=== PATIENT | female | born 1985 | race Native Hawaiian/Other Pacific Islander ===

== ENCOUNTER 2017-11-14 12:11 | Outpatient (CLI) | payer OTHER ==
[2017-11-14 12:46] LABS: BASOPHILS # (AUTO) 0.1 10^3/uL (0.0-0.1); BASOPHILS % (AUTO) 0.8 %; EOSINOPHILS # (AUTO) 0.3 10^3/uL (0.0-0.7); EOSINOPHILS % (AUTO) 2.2 %; HGB - HEMOGLOBIN 12.8 g/dL (12.0-16.0); LYMPHOCYTES # (AUTO) 2.2 10^3/uL (1.5-3.5); LYMPHOCYTES % (AUTO) 17.6 %; MEAN CORPUSCULAR HEMOGLOBIN 30.8 pg (27.0-31.0); MEAN CORPUSCULAR HGB CONC 33.7 g/dL (32.0-36.0); MEAN CORPUSCULAR VOLUME 91.3 fL (81.0-99.0); MEAN PLATELET VOLUME 7.2 fL (7.9-10.8); MONOCYTES # (AUTO) 1.2 10^3/uL (0.0-1.0); MONOCYTES % (AUTO) 9.9 %; NEUTROPHILS # (AUTO) 8.6 10^3/uL (1.5-6.6); NEUTROPHILS % (AUTO) 69.5 %; PLT - PLATELET COUNT 329 10^3/uL (130-450); RED BLOOD COUNT 4.17 10^6/uL (4.20-5.40); RED CELL DISTRIBUTION WIDTH 13.8 % (12.0-15.0); WHITE BLOOD COUNT 12.4 x10^3/uL (4.8-10.8)
[2017-11-14 12:54] LABS: BILIRUBIN,URINE NEGATIVE (NEGATIVE); GLUCOSE, URINE (UA) NEGATIVE (NEGATIVE); KETONES,URINE (UA) NEGATIVE (NEGATIVE); LEUKOCYTE ESTERASE, URINE NEGATIVE (NEGATIVE); NITRITE,URINE NEGATIVE (NEGATIVE); OCCULT BLOOD,URINE NEGATIVE (NEGATIVE); PROTEIN,URINE NEGATIVE (NEGATIVE); UROBILINOGEN,URINE 0.2 (NORMAL) E.U./dL (NORMAL)
[2017-11-14 12:56] LABS: CLARITY,URINE CLEAR (CLEAR)
[2017-11-14 13:03] LABS: BACTERIA,URINE Few /HPF (None Seen); MUCUS,URINE Moderate Strands; RBC,URINE None Seen /HPF (0-5); SQUAMOUS EPITHELIAL CELL,UR MANY Squamous (<= Few)
[2017-11-15 13:36] LABS: HIV AG/AB 4TH GEN NON-REACTIVE (NON-REACTIVE)
[2017-11-15 13:37] LABS: HEPATITIS B SURFACE ANTIGEN NON-REACTIVE (NON-REACTIVE)
== END 2017-11-14 12:12 | disposition home or self-care (01) ==
LOC: LAB 12:11
PROVIDERS: ATTEND Obstetrics & Gynecology
DX: Z36.9 Encounter for antenatal screening, unspecified (principal)
CPT/HCPCS: 36415; 81001; 81599; 85025; 86592; 86762; 86850; 86900; 86901; 87340; 87389

== ENCOUNTER 2017-12-19 12:07 | Outpatient (CLI) | payer OTHER | END 2017-12-19 12:08 | disposition home or self-care (01) | LOC: LAB 12:07 | PROVIDERS: ATTEND Obstetrics & Gynecology | DX: Z13.79 Encounter for other screening for genetic and chromosomal anomalies (principal); Z36.0 Encounter for antenatal screening for chromosomal anomalies | CPT/HCPCS: 36415; 81599; 82105; 82677; 84702; 86336 ==

== ENCOUNTER 2018-01-03 15:31 | Outpatient (CLI) | payer OTHER | END 2018-01-03 15:32 | disposition home or self-care (01) | LOC: LAB.R 15:31 | PROVIDERS: ATTEND Obstetrics & Gynecology | DX: R80.9 Proteinuria, unspecified (principal) | CPT/HCPCS: 87086 ==

== ENCOUNTER 2018-01-23 12:18 | Outpatient (CLI) | payer OTHER ==
--- NOTE | 2018-01-25 15:07 | Ultrasound Report ---
DETAILED OB ULTRASOUND ANATOMIC SURVEY: 01/23/2018 COMPARISON: No studies for comparison. INDICATION: Anatomy screen. TECHNIQUE: Real-time scanning was performed with farm loan representative static images obtained. LAST MENSTRUAL PERIOD 09/16/2017 Clinical Age 18 weeks 3 days US Age 19 weeks 6 days EFW Hadlock 304 grams EFW% Hadlock -- Heart Rate 154 bpm EDC 06/23/2018 US EDC 06/13/2018 BPD [place] 20 weeks 0 days; Mean mm 46 HC [place] 19 weeks 5 days; Mean mm 172 AC [place] 19 weeks 2 days; Mean mm 139 FL [place] 20 weeks 0 days; Mean mm 32 Presentation ariable Placental Location anterior Cervical Length 5.2 cm Amniotic Fluid 16.02 cm; FINDINGS The following structures were identified and have a normal appearance: Choroid plexus, lateral ventricles, midline falx, cavum septum pellucidum, cisterna magna, cerebellum, nasal bone, coronal face, nose and lips, open hands, cardiac situs, 4-chamber heart, right and left ventricular outflow tracts, stomach in situs, heart, stomach, bladder, diaphragm, kidneys, bladder, cord insertion, spine, upper extremities and lower extremities, leg and foot relationships. The following maternal structures appear unremarkable: Uterus, cervix, bilateral adnexae. No free fluid. IMPRESSION 1. SINGLE VIABLE INTRAUTERINE . SIZE IS CONCORDANT WITH DATES. 2. NO ANOMALIES. TD: 01/23/2018 14:59 MTDD
== END 2018-01-23 12:19 | disposition home or self-care (01) ==
LOC: DI 12:18
PROVIDERS: ATTEND Obstetrics & Gynecology
DX: Z36.9 Encounter for antenatal screening, unspecified (principal)
CPT/HCPCS: 76811

== ENCOUNTER 2018-03-20 07:43 | Outpatient (CLI) | payer OTHER ==
[2018-03-20 09:45] LABS: HGB - HEMOGLOBIN 11.4 g/dL (12.0-16.0); MEAN CORPUSCULAR HEMOGLOBIN 30.7 pg (27.0-31.0); MEAN CORPUSCULAR HGB CONC 32.9 g/dL (32.0-36.0); MEAN CORPUSCULAR VOLUME 93.4 fL (81.0-99.0); MEAN PLATELET VOLUME 7.6 fL (7.9-10.8); RED BLOOD COUNT 3.7 10^6/uL (4.20-5.40); RED CELL DISTRIBUTION WIDTH 14.2 % (12.0-15.0); WHITE BLOOD COUNT 11.7 x10^3/uL (4.8-10.8)
== END 2018-03-20 07:44 | disposition home or self-care (01) ==
LOC: LAB 07:43
PROVIDERS: ATTEND Nurse Practitioner Obstetrics & Gynecology
DX: Z36.9 Encounter for antenatal screening, unspecified (principal)
CPT/HCPCS: 36415; 82950; 86850

== ENCOUNTER 2018-04-09 07:58 | Outpatient (CLI) | payer OTHER | END 2018-04-09 07:59 | disposition home or self-care (01) | LOC: LAB 07:58 | PROVIDERS: ATTEND Nurse Practitioner Obstetrics & Gynecology | DX: R73.01 Impaired fasting glucose (principal) | CPT/HCPCS: 36415; 82951; 82952 ==

== ENCOUNTER 2018-05-13 08:00 | Outpatient (CLI) | payer OTHER | END 2018-05-13 08:01 | disposition home or self-care (01) | LOC: LAB.R 08:00 | PROVIDERS: ATTEND Nurse Practitioner Obstetrics & Gynecology | DX: Z36.85 Encounter for antenatal screening for Streptococcus B (principal) | CPT/HCPCS: 87797 ==

== ENCOUNTER 2018-05-24 07:46 | Outpatient (CLI) | payer OTHER ==
[2018-05-24 07:56] VITALS: BP 114/65
[2018-05-24 08:32] LABS: RUPTURE OF MEMBRANES PLUS NEGATIVE (NEGATIVE)
== END 2018-05-24 08:45 | disposition home or self-care (01) ==
LOC: WFO 07:46 → FBP 07:48 → WFO 08:45
PROVIDERS: ATTEND Nurse Practitioner Obstetrics & Gynecology
DX: O99.89 Other specified diseases and conditions complicating pregnancy, childbirth and the puerperium (principal); N89.8 Other specified noninflammatory disorders of vagina; Z3A.37 37 weeks gestation of pregnancy
CPT/HCPCS: 84112; 99213

== ENCOUNTER 2018-05-30 15:12 | Outpatient (CLI) | payer OTHER ==
[2018-05-30 15:32] VITALS: BP 118/79
[2018-05-30 16:09] LABS: BILIRUBIN,URINE NEGATIVE (NEGATIVE); CLARITY,URINE CLEAR (CLEAR); GLUCOSE, URINE (UA) NEGATIVE (NEGATIVE); KETONES,URINE (UA) NEGATIVE (NEGATIVE); LEUKOCYTE ESTERASE, URINE NEGATIVE (NEGATIVE); NITRITE,URINE NEGATIVE (NEGATIVE); OCCULT BLOOD,URINE NEGATIVE (NEGATIVE); PROTEIN,URINE NEGATIVE (NEGATIVE); UROBILINOGEN,URINE 0.2 (NORMAL) E.U./dL (NORMAL)
[2018-05-30 16:16] LABS: BACTERIA,URINE None Seen /HPF (None Seen); RBC,URINE None Seen /HPF (0-5); SQUAMOUS EPITHELIAL CELL,UR MANY Squamous (<= Few)
== END 2018-05-30 16:05 | disposition home or self-care (01) ==
LOC: WFO 15:12 → FBP 15:15 → WFO 16:05
PROVIDERS: ATTEND Registered Nurse
DX: O47.1 False labor at or after 37 completed weeks of gestation (principal); Z3A.38 38 weeks gestation of pregnancy
CPT/HCPCS: 81001; 87086; 99213

== ENCOUNTER 2018-06-06 19:59 | Inpatient (IN) | payer OTHER ==
[2018-06-06] MEDS ORDERED: fentaNYL 100 MCG/2 ML VIAL IVP PRN (20:37)
[2018-06-06] MEDS ORDERED: ONDANSETRON 4 MG/2 ML VIAL IVP PRN (20:37)
[2018-06-06] MEDS ORDERED: PENICILLIN G POTASSIUM 5,000,000 UNIT in SODIUM CHLORIDE 0.9% MINIBAG 100 ML IV ONE (21:00)
[2018-06-06 21:46] LABS: MEAN PLATELET VOLUME 7.8 fL (7.9-10.8); RED CELL DISTRIBUTION WIDTH 14.6 % (12.0-15.0)
[2018-06-06 22:03] LABS: HGB - HEMOGLOBIN 11.6 g/dL (12.0-16.0); LYMPHOCYTES % (AUTO) 16.2 %; MEAN CORPUSCULAR HEMOGLOBIN 29.3 pg (27.0-31.0); MEAN CORPUSCULAR HGB CONC 32.5 g/dL (32.0-36.0); MEAN CORPUSCULAR VOLUME 90.1 fL (81.0-99.0); MONOCYTES % (AUTO) 12.6 %; NEUTROPHILS % (AUTO) 68.2 %; PLT - PLATELET COUNT 326 10^3/uL (130-450); RED BLOOD COUNT 3.97 10^6/uL (4.20-5.40); WHITE BLOOD COUNT 13.9 x10^3/uL (4.8-10.8)
[2018-06-06 22:05] LABS: ABNORMAL LYMPHS % (MANUAL) 0 %; BAND NEUTROPHILS % (MANUAL) 0 %
[2018-06-06] MEDS: SODIUM CHLORIDE FLUSH 0.9% 10 ML SYRINGE IVP SCH (22:09)
[2018-06-06 22:23] LABS: LYMPHOCYTES # (MANUAL) 2.2 10^3/uL (1.5-3.5); LYMPHOCYTES % (MANUAL) 16 %; MONOCYTES # (MANUAL) 2.1 10^3/uL (0.0-1.0); MYELOCYTES % (MANUAL) 1 %; NEUTROPHILS # (MANUAL) 9.5 10^3/uL (1.5-6.6); NEUTROPHILS % (MANUAL) 68 %
[2018-06-06 22:24] LABS: PLATELET ESTIMATE, MANUAL NORMAL (130-450,000) (NORMAL); PLATELET MORPHOLOGY NORMAL APPEARANCE (NORMAL); RBC MORPHOLOGY (MULTIPLE) NORMAL APPEARANCE (NORMAL)
[2018-06-06] MEDS: SODIUM CHLORIDE FLUSH 0.9% 10 ML SYRINGE IVP PRN (23:03)
[2018-06-07] MEDS: PENICILLIN G POTASSIUM 2,500,000 UNIT in SODIUM CHLORIDE 0.9% 100ML 100 ML IV SCH ×2 (01:58→05:55)
[2018-06-07] MEDS: SODIUM CHLORIDE FLUSH 0.9% 10 ML SYRINGE IVP SCH ×2 (01:59→18:06)
[2018-06-07] MEDS: SODIUM CHLORIDE FLUSH 0.9% 10 ML SYRINGE IVP PRN ×4 (01:59→20:15)
[2018-06-07] MEDS: LACTATED RINGERS 1,000 ML IV SCH ×4 (02:13→21:30)
--- NOTE | 2018-06-07 03:10 | HISTORY & PHYSICAL EXAMINATION ---
Admit History - Instructions Huslia/Slash: -Left hand click circles element as positive or present. -Right hand click slashes element as negative or not present. - Visit Reason Visit Reason: Other - Care: positive: [facility] Risk/History: positive: None Smoking Status: Former smoker - Mother's Labs Mother's Blood Type: positive: O Mother's RH: positive: Positive GBS: positive: Group B Strep Positive Rubella Status: positive: Immune - Other Maternal History Other Maternal History: HPI: This 33yo at 39.1wks gestation by L= 9wk U/S presents 06/06/2018 at 2000 for IOL secondary to significant maternal discomfort and prodromal labor. She denies Lof. Reports minimal bloody show. Reports intermittent contractions and significant pelvic and back discomfort which has been ongoing for the last several weeks. +FM. Dating Criteria: 1. LMP 2. First ultrasound 11/08/2017 @ 9wks gestation - agrees 3. Serial exams 13 - 39 wks - agrees OB History: G1: 12/31/2003, 40wks, 2920g, Female - , no complications G2: Bad date, elective G3: Current PMHx: Anxiety [employer] Hx: No hx STDs, no [employer] surgeries, no Hx abnormal paps - last pap 11/2017 WNL , HPV neg Social Hx: Former smoker; No ETOH or IVDA; [place]; Works for [employer] Hx: Lung cancer - mother, caused at age 58; Stroke - father Meds: PNV, unisom Allergies: NKDA Physical Exam: Heart RRR w/o M/G/R Lungs CTAB Abdomen gravid, soft, nontender Bilateral LE's trace edema FHR baseline 130, moderate variability, + accels, no decels Contractions intermittent - palpate mild labs: O pos, antibody neg Hgb 12.8; Hct 38.0; PLT 329 Rubella immune HIV non-reactive Hep B non-reactive RPR non-reactive GC/CT neg Quad screen negative 28 week labs: 1 hr GTT 143 Antibody neg Hgb 11.4 3 hour GTT: Fasting 93; 1hr 122; 2hr 97; 3hr 97 Tdap 04/12/2018 Ultrasounds: 01/29/2018 FAS WNL; Anterior placenta, no previa, size c/w dating GBS positive Meds/Allgy - Allergies Allergies/Adverse Reactions: Allergies Allergy/AdvReac Type Severity Reaction Status Date / Time No Known Drug Allergies Allergy Verified 06/06/18 21:40 Physical - Abdominal Exam Vital Signs: Temp Pulse Resp BP Pulse Ox 36.7 C 84 16 109/70 100 06/07/18 01:00 06/07/18 01:00 06/07/18 01:00 06/07/18 01:00 06/07/18 01:00
[2018-06-07] MEDS: miSOPROStol 100 MCG TABLET BC SCH ×4 (03:38→21:29)
--- NOTE | 2018-06-07 03:41 | PROVIDER PROGRESS NOTE ---
Labor Progress Note - Uterine Monitoring Uterine Monitoring Mode: positive: External toco Contraction Frequency (min/apart): intermittent Contraction Intensity: positive: Mild Uterine Resting Tone: positive: Soft - Monitoring Monitor Mode: positive: External ultrasound Heart Rate Baseline: 120 Heart Rate Variability: positive: Moderate (6-25 bmp) Accelerations: positive: Present, 15x15 Decelerations: positive: None Strip Review: positive: Category I - Vaginal Exam Dilation (in cm): 3-4 Effacement (%): 75 Station: 0 Cervical Position: Posterior - Labor Progress Note Labor Progress Note/Additional Text: S: Kate is walking in the room and having difficulty getting comfortable due to back and pelvic discomfort. Mood is good. and daughter supportive at the bedside. O: FHR baseline 120s, moderate variability, + accels, no decels. Contractions palpate mild intermittently. SVE 3-4/75/-0, vertex, soft, posterior BP 109/70, HR 83, T 36.7 AROM moderate amount of clear fluid A: 33yo @ 39.1wks gestation by L=9wk U/S Logistic IOL secondary to signficant maternal discomfort GBS positive -s/p penicillin G loading dose and maintenance dose x1 FHR Category I P: Continuous monitoring 50mcg misoprostol BC q 4 hours x 3 doses Consider initiation of pitocin for IOL if patient had not progressed after 3 BC doses of 50mcg misoprostol. Continue penicillin per protocol for GBS prophylaxis. Anticipate spontaneous vaginal delivery. Reevaluate in 4 hours or sooner PRN.
[2018-06-07] MEDS ORDERED: miSOPROStol 200 MCG TABLET ONE (05:50)
[2018-06-07] MEDS ORDERED: LIDOCAINE 1% 50 ML MDV ONE (05:50)
[2018-06-07] MEDS ORDERED: OXYTOCIN/SODIUM CHLORIDE 500 ML IV ONE (05:51)
[2018-06-07] MEDS ORDERED: SIMETHICONE CHEW 80 MG TABLET PO SCH (06:27)
[2018-06-07] MEDS ORDERED: PENICILLIN G POTASSIUM 2,500,000 UNIT in SODIUM CHLORIDE 0.9% 100ML 100 ML IV SCH (12:00)
[2018-06-07] MEDS ORDERED: HYDROCORTISONE/PRAMOXINE 10 GM PR PRN (12:48)
[2018-06-07] MEDS ORDERED: WITCH HAZEL/GLYCERIN 1 EACH MED..PAD TOP PRN (12:48)
[2018-06-07] MEDS ORDERED: OXYTOCIN/SODIUM CHLORIDE 250 ML IV ONE (12:48)
--- NOTE | 2018-06-07 12:52 | DELIVERY NOTE ---
Delivery Note - Labor Labor: positive: Induced by ARM, Other - Delivery Method Delivery Method: positive: Spontaneous vaginal delivery - Presentation Presentation: positive: Vertex, DANIA - left occiput anterior - Nuchal Cord Nuchal Cord: positive: None - Amniotic Fluid Description Amniotic Fluid Description: positive: Clear - Episiotomy Type Episiotomy Type: positive: None - Laceration Laceration: positive: None - Delivery Outcome Delivery Outcome: positive: Livebirth - [place]: positive: Placed in direct skin contact with mother, Stimulated, Celoron used sex: positive: Female - Cord Cord: positive: 3 vessels - Placenta Placenta: positive: Intact, Spontaneous - Estimated Blood Loss Estimated Blood Loss (in cc): 300 - Post Delivery Events Post Delivery Events: positive: Shoulder dystocia - Delivery Comments (Free Text/Narrative) Delivery Comments (Free Text/Narrative): Labor: This 33yo @ 39.1 wks gestation by L=9wk U/S presented at 2000 on 06/07/2018 for elective IOL. Cervix was 3-5/75/0, posterior and vertex. FHR demonstrated a baseline of 140 in a Category I pattern. significant for GBS positive and she was given 1 loading dose and 3 maintenance doses of penicillin G per protocol. Following completion of second dose of penicillin G AROM was performed for a moderate amount of clear fluid. Misoprostol 50mcg BC q 4 hours x2 doses were administered. Patient progressed to c/c/0 and pushing at 0948. : Normal SVB of viable female . No nuchal. head delivered in DANIA position and spontaneously rotated to HARPER. Shoulder dystocia x 60 seconds resolved with McRobert's, suprapubic pressure applied over anterior shoulder by RN, attempt to deliver anterior arm unsuccessful, attempt to delivery posterior arm successful. The anterior shoulder was then easily delivered. The was placed on maternal abdomen, stimulated, dried, and placed skin to skin. 's were 7 and 9 at 1 and 5 min respectively on 06/07/2018 at 1227 for a total second stage of 2 hours and 21 min. The umbilical cord allowed to stop pulsating and was doubly clamped and cut by FOB. A cord segment was cut for cord gases and cord blood was obtained. Placenta delivered spontaneously and intact at 1246. 3VC. Pitocin administered via IV for hemostasis. EBL 300mL. Fourth stage: Uterine fundus firm and there is no excessive bleeding. The perineum, vaginal, and cervix were inspected and found to be intact. Family bonding well. Both mother and baby were left in stable condition.
[2018-06-07] MEDS: IBUPROFEN 800 MG TABLET PO SCH ×2 (14:39→20:14)
[2018-06-07] MEDS: ACETAMINOPHEN 325 MG TABLET PO PRN ×2 (14:39→20:14)
[2018-06-07] MEDS: SIMETHICONE CHEW 80 MG TABLET PO SCH ×2 (18:05→21:14)
[2018-06-07] MEDS ORDERED: DOCUSATE SODIUM 100 MG CAPSULE PO SCH (21:00)
[2018-06-08] MEDS: IBUPROFEN 800 MG TABLET PO SCH ×2 (03:15→09:02)
[2018-06-08] MEDS: ACETAMINOPHEN 325 MG TABLET PO PRN ×3 (03:16→14:58)
[2018-06-08] MEDS: SODIUM CHLORIDE FLUSH 0.9% 10 ML SYRINGE IVP SCH (06:46)
--- NOTE | 2018-06-08 09:54 | Discharge Plan ---
Discharge Plan Disposition: 01 Home, Self Care Condition: Good Diet: Regular Activity Restrictions: No Restrictions Shower Restrictions: No Driving Restrictions: No No Smoking: If you smoke, Please STOP! Call for help. Follow-up with: Hannah José CNM, ARNP [Family Provider] -
--- NOTE | 2018-06-08 10:02 | PROVIDER PROGRESS NOTE ---
Subjective - Subjective Subjective: FINAL PROGRESS NOTE S: Bonding well with baby. without difficulty other than some moderate nipple discomfort with initial latch. Pain well controlled with ibuprofen and tylenol. Perineum comfortable. Majority of pain associated with muscle soreness in arms and legs. Mood is good. They desire to go home today. Daughter sleeping at the bedside. supportive at the bedside. O: BP 121/72, T 37.0, HR 84, RR 18 Heart RRR w/o M/G/R, lungs CTAB, abdomen soft and nontender with fundus firm at U-1. Bilateral LE's no edema. Perineum intact. A: 33yo -->P2 s/p TSVD of viable female infant P: Reviewed self care and warning s/sx. She will be discharge home today on day #1 with Rx handwritten and provided for All Purpose Nipple Ointment. Will continue Ibuprofen 800mg PO q8hrs PRN pain and continue PNV while . She does not desire contraception. She plans to f/u with myself in 1 week for visit and 3 weeks for visit. She verbalized understanding and agrees to above plan. She denies further questions or concerns at this time. Objective - Vital Signs/Intake & Output Vital Signs: Vital Signs x48h Temp Pulse Resp BP Pulse Ox 06/08/18 09:06 37.0 C 83 16 113/67 99 06/08/18 04:21 36.8 C 90 18 103/67 99 Intake & Output: Intake & Output 06/05/18 06/06/18 06/07/18 06/08/18 23:59 23:59 23:59 23:59 Intake Total 100 1700 Output Total 575 Balance 100 1125 - Lab Results Fish Bones: 06/06/18 21:25
[2018-06-08] MEDS: SIMETHICONE CHEW 80 MG TABLET PO SCH (13:00)
[2018-06-08 16:28] VITALS: BP 110/58
--- NOTE | 2018-06-11 03:52 | DISCHARGE SUMMARY ---
Physician: ODELL Lucero DATE OF ADMISSION: 06/06/2018 DATE OF DISCHARGE: 06/08/2018 DIAGNOSIS ON ADMISSION 1. A 33-year-old G3, P1-0-1-1 at 39 weeks' gestation. 2. Induction of labor. 3. Group B Streptococcus positive. DIAGNOSES ON DISCHARGE 1. A 33-year-old, G3, P2-0-1-2, status post spontaneous vaginal delivery on 06/07/2018. 2. Normal recovery. BRIEF HISTORY: She is a patient at [facility] who presented on 06/07/2018 for logistic induction of labor. Cervix was 3-4 cm, 75% effaced, 0 station, and posterior and vertex. She was given one loading dose of penicillin for GBS positive status followed by three maintenance doses of penicillin G per protocol. Following completion of second dose of penicillin G , artificial rupture of membranes was performed for a moderate amount of clear fluid. Misoprostol 50 mcg buccally q.4h. x2 doses were administered. The patient progressed to complete, complete, and 0 station and pushing at 0948 on 06/07/2018. She spontaneously delivered a viable female named Adriana. Apgars were 7 and 9 at one and five minutes respectively on 06/07/2018 at 12: 27. The perineum, vagina and cervix were inspected and found to be intact. She has been doing well in her course. She was ambulating and tolerating a regular diet. She is urinating without difficulty and her lochia is normal. Her pain is well controlled with oral medications. She will be discharged home today on day #1 with prescriptions for all purpose nipple ointment and ibuprofen. She intends to followup with myself at [facility] in one week for a visit and then in three weeks for routine visit. She has been given precautions to call if she has any worsening fevers, chills, abdominal pain, increased bleeding or foul smelling vaginal lochia. TD: 06/10/2018 10:45 CATIA
== END 2018-06-08 17:00 | disposition home or self-care (01) | DRG 775 ==
LOC: WFO 19:59 → FBP 20:01 → WFO 20:37 → FBP 20:38
PROVIDERS: ADMIT Nurse Practitioner Obstetrics & Gynecology; ATTEND Nurse Practitioner Obstetrics & Gynecology
PROC: 10E0XZZ Delivery of Products of Conception, External Approach (ICD-10-PCS; principal; 2018-06-07)
PROC: 10907ZC Drainage of Amniotic Fluid, Therapeutic from Products of Conception, Via Natural or Artificial Opening (ICD-10-PCS; 2018-06-07)
DX: O99.824 Streptococcus B carrier state complicating childbirth (principal); O66.0 Obstructed labor due to shoulder dystocia; Z3A.39 39 weeks gestation of pregnancy; Z37.0 Single live birth; Z87.891 Personal history of nicotine dependence
CPT/HCPCS: 36415; 85025

== ENCOUNTER 2018-11-28 10:34 | Emergency (ER) | payer OTHER ==
[2018-11-28] MEDS ORDERED: METOCLOPRAMIDE 10 MG/2 ML VIAL IVP STA (10:46)
[2018-11-28] MEDS ORDERED: SODIUM CHLORIDE 0.9% 1,000 ML IV ONE (10:46)
[2018-11-28] MEDS ORDERED: FAMOTIDINE 20 MG in SODIUM CHLORIDE 0.9% 50 ML IV STA (10:46)
[2018-11-28] MEDS ORDERED: fentaNYL 100 MCG/2 ML VIAL IVP STA (10:56)
[2018-11-28 11:02] LABS: BASOPHILS # (AUTO) 0.1 10^3/uL (0.0-0.1); BASOPHILS % (AUTO) 1.2 %; EOSINOPHILS # (AUTO) 0.3 10^3/uL (0.0-0.7); EOSINOPHILS % (AUTO) 4.2 %; HGB - HEMOGLOBIN 12.2 g/dL (12.0-16.0); LYMPHOCYTES # (AUTO) 2.1 10^3/uL (1.5-3.5); LYMPHOCYTES % (AUTO) 32.1 %; MEAN CORPUSCULAR HEMOGLOBIN 29.4 pg (27.0-31.0); MEAN CORPUSCULAR VOLUME 86.6 fL (81.0-99.0); MEAN PLATELET VOLUME 7.2 fL (7.9-10.8); MONOCYTES # (AUTO) 0.7 10^3/uL (0.0-1.0); MONOCYTES % (AUTO) 10.6 %; NEUTROPHILS # (AUTO) 3.4 10^3/uL (1.5-6.6); NEUTROPHILS % (AUTO) 51.9 %; PLT - PLATELET COUNT 432 10^3/uL (130-450); RED BLOOD COUNT 4.16 10^6/uL (4.20-5.40); WHITE BLOOD COUNT 6.6 x10^3/uL (4.8-10.8)
[2018-11-28] MEDS ORDERED: IOVERSOL 320 100 ML VIAL IVP ONE ×2 (11:07→11:44)
--- NOTE | 2018-11-28 11:13 | ED Physician Documentation ---
PD HPI ABD PAIN - Stated complaint Stated Complaint: ABD PX - Chief complaint Chief Complaint: Abd Pain - History obtained from History obtained from: Patient - History of Present Illness Timing - onset: How many weeks ago (1) Timing - details: Gradual onset Severity Comments: moderate Quality: Cramping, Sharp, Stabbing Location: LLQ Associated symptoms: Nausea Similar symptoms before: No diagnosis - Additional information Additional information: 33-year-old female presents the emergency department with complaints of increasing abdominal pain over the past week. The patient reports a bloating and nausea over the past week but in the past day the patient is developed increased crampy sharp pain in the left abdomen worse in the left lower abdomen. The patient denies blood in the stools. The patient denies dysuria or vaginal discharge. No triggering factors. No relieving factors. Symptoms are described as moderate. No other associated symptoms Review of Systems Constitutional: denies: Fever, Chills Eyes: denies: Discharge Ears: denies: Ear pain Nose: denies: Congestion Throat: denies: Sore throat Cardiac: denies: Chest pain / pressure Respiratory: denies: Cough GI: reports: Abdominal Pain, Nausea. denies: Diarrhea : denies: Dysuria Skin: denies: Rash Musculoskeletal: denies: Neck pain Neurologic: denies: Generalized weakness Immunocompromised: denies: Chemotherapy PD PAST MEDICAL HISTORY - Past Surgical History Past Surgical History: No - Present Medications Home Medications: Ambulatory Orders Medication Instructions Recorded Confirmed Calcium Carbonate [Tums (Calcium 11/28/18 Carbonate 500mg)] Famotidine [Pepcid] 20 mg PO BID 10 Days #60 tablet 11/28/18 Ondansetron HCl [Zofran] 4 mg PO Q6HR PRN #30 tablet 11/28/18 Simethicone [Gas Relief] 1 - 2 tab PO DAILY 11/28/18 11/28/18 - Allergies Allergies/Adverse Reactions: Allergies Allergy/AdvReac Type Severity Reaction Status Date / Time No Known Drug Allergies Allergy Verified 11/28/18 10:45 - Social History Does the pt smoke?: No Smoking Status: Former smoker Does the pt drink ETOH?: No Does the pt have substance abuse?: No - Immunizations Immunizations are current?: Yes PD ED PE NORMAL - General General: Alert and oriented X 3, No acute distress - HEENT HEENT: Atraumatic, PERRL, EOMI, Ears normal - Neck Neck: Supple, no meningeal sign - Cardiac Cardiac: RRR, Strong equal pulses - Respiratory Respiratory: No respiratory distress, Clear bilaterally - Abdomen Abdomen: Soft, Non distended. No: Non tender (The patient is tender palpation in the left abdomen worse in the left lower abdomen, there is no rebound or peritoneal signs) - Back Back: No CVA TTP - Derm Derm: Normal color - Neuro Neuro: Alert and oriented X 3, Normal speech - Psych Psych: Normal affect Results - Vitals Vitals: Vital Signs - 24 hr 11/28/18 10:42 Temperature 36.4 C L Heart Rate 88 Respiratory 16 Rate Blood Pressure 129/88 H O2 Saturation 98 Oxygen O2 Source Room air - Labs Labs: Laboratory Tests 11/28/18 11/28/18 11/28/18 10:58 10:58 11:05 WBC 6.6 RBC 4.16 L Hgb 12.2 Hct 36.0 L MCV 86.6 MCH 29.4 MCHC 34.0 RDW 14.0 Plt Count 432 MPV 7.2 L Neut # (Auto) 3.4 Lymph # (Auto) 2.1 [place] # (Auto) 0.7 Eos # (Auto) 0.3 Baso # (Auto) 0.1 Absolute Nucleated RBC 0.00 Nucleated RBC % 0.1 Sodium 137 Potassium 3.6 Chloride 103 Carbon Dioxide 26 Anion Gap 8.0 BUN 11 Creatinine 0.6 Estimated GFR (MDRD) 114 Glucose 103 H Calcium 9.2 Total Bilirubin 0.4 AST 20 ALT 15 Alkaline Phosphatase 79 Total Protein 7.6 Albumin 4.1 Globulin 3.5 Albumin/Globulin Ratio 1.2 Lipase 28 Urine Color YELLOW Urine Clarity CLEAR Urine pH 6.5 Ur Specific [place] <=1.005 Urine Protein NEGATIVE Urine Glucose (UA) NEGATIVE Urine Ketones NEGATIVE Urine Occult Blood NEGATIVE Urine Nitrite NEGATIVE Urine Bilirubin NEGATIVE Urine Urobilinogen 0.2 (NORMAL) Ur Leukocyte Esterase NEGATIVE Ur Microscopic Review NOT INDICATED Urine Culture Comments NOT INDICATED Urine HCG, Qual NEGATIVE - Rads (name of study) CT abd/pelvis Radiology: Final report received, See rad report (1. Mild gaseous distention of the transverse colon, descending colon, and sigmoid colon. There is a small amount of formed stool in the transverse colon. There is a moderate amount of formed stool in the ascending colon, distal sigmoid colon, and rectum. 2. No evidence of small bowel obstruction. 3. The appendix is normal. 4.Small fat- containing umbilical hernia. ) PD MEDICAL DECISION MAKING - ED course ED course: The patient's workup does not reveal any acute abnormality that would necessitate admission to the hospital or acute surgical consultation. Presently the patient appears appropriate for discharge and ongoing outpatient management. I discussed with her the findings and plan. The patient will follow up with primary care and if needed will get a referral to gastroenterology to further assess her symptoms. The patient will return to the emergency department for an y worsening or concerns. Departure - Departure Disposition: Home, Self Care Clinical Impression: Abdominal pain Qualifiers: Abdominal location: unspecified location Qualified Code(s): R10.9 - Unspecified abdominal pain Condition: Good Instructions: Abdominal Pain Follow-Up: ALEJANDRO DANIELSON [Primary Care Provider] - Within 1 week (If your symptoms are ongoing please ask your primary care about a referral to gastroenterology to further assess your symptoms) Prescriptions: Ondansetron HCl [Zofran] 4 mg PO Q6HR PRN #30 tablet PRN Reason: Nausea / Vomiting Famotidine [Pepcid] 20 mg PO BID 10 Days #60 tablet Comments: Please return for any worsening or any concerns
[2018-11-28 11:18] LABS: BILIRUBIN,URINE NEGATIVE (NEGATIVE); GLUCOSE, URINE (UA) NEGATIVE (NEGATIVE); KETONES,URINE (UA) NEGATIVE (NEGATIVE); LEUKOCYTE ESTERASE, URINE NEGATIVE (NEGATIVE); NITRITE,URINE NEGATIVE (NEGATIVE); OCCULT BLOOD,URINE NEGATIVE (NEGATIVE); PH,URINE 6.5 PH (5.0-7.5); PROTEIN,URINE NEGATIVE (NEGATIVE); UROBILINOGEN,URINE 0.2 (NORMAL) E.U./dL (NORMAL)
[2018-11-28 11:19] LABS: ALBUMIN 4.1 g/dL (3.2-5.5); ALBUMIN/GLOBULIN RATIO 1.2 (1.0-2.2); BILIRUBIN,TOTAL 0.4 mg/dL (0.2-1.0); CALCIUM 9.2 mg/dL (8.5-10.3); CREATININE 0.6 mg/dL (0.4-1.0); TOTAL PROTEIN 7.6 g/dL (6.7-8.2)
[2018-11-28 11:21] LABS: CLARITY,URINE CLEAR (CLEAR); HCG UR QUAL NEGATIVE
--- NOTE | 2018-11-28 12:03 | CT Report ---
Reason: LLQ pain Procedure Date: 11/28/2018 Accession Number: [id number] / [id number] Procedure: CT - Abdomen/Pelvis W/ CPT Code: FULL RESULT: EXAM: CT ABDOMEN AND PELVIS EXAM DATE: 11/28/2018 11:43 AM. CLINICAL HISTORY: Left lower quadrant abdominal pain. COMPARISONS: None. TECHNIQUE: Routine helical CT imaging was performed through the abdomen and pelvis. IV contrast: 90 cc Optiray 320. Enteric contrast: No. Reconstructions: Coronal and sagittal. In accordance with CT protocol optimization, one or more of the following dose reduction techniques were utilized for this exam: automated exposure control, adjustment of mA and/or KV based on patient size, or use of iterative reconstructive technique. FINDINGS: Lung Bases: Unremarkable. Liver: Normal. No masses. Gallbladder/Bile Ducts: Unremarkable. Spleen: Normal. Pancreas: Normal. Adrenal Glands: Normal. Kidneys: Normal. No masses or hydronephrosis. Peritoneal Cavity/Bowel: No free fluid, free air or adenopathy. No masses or acute inflammatory process. No small bowel dilatation. There is a moderate amount of formed stool in the ascending colon. There is gaseous distention of the transverse colon, descending colon, and sigmoid colon. There is a small amount of formed stool in the transverse colon. There is a moderate amount of formed stool in the distal sigmoid colon and rectum. The appendix is well visualized and normal. Pelvic Organs: Normal. The bladder and visualized pelvic organs are within normal limits. Vasculature: No aneurysms or other significant abnormality. Bones: No significant abnormality. Other: There is a small fat-containing umbilical hernia. IMPRESSION: 1. Mild gaseous distention of the transverse colon, descending colon, and sigmoid colon. There is a small amount of formed stool in the transverse colon. There is a moderate amount of formed stool in the ascending colon, distal sigmoid colon, and rectum. 2. No evidence of small bowel obstruction. 3. The appendix is normal. 4. Small fat-containing umbilical hernia. RADIA
[2018-11-28 12:37] VITALS: BP 124/80
== END 2018-11-28 12:37 | disposition home or self-care (01) ==
LOC: ED 10:34
DX: R10.32 Left lower quadrant pain (principal); K42.9 Umbilical hernia without obstruction or gangrene; Z87.891 Personal history of nicotine dependence
CPT/HCPCS: 36415; 74177; 80053; 81003; 81025; 83690; 85025; 96365; 96375; 99283; 99284; J2765; J7040; Q9967; 81001; 87086

== ENCOUNTER 2020-06-07 12:47 | Emergency (ER) | payer OTHER ==
[2020-06-07 13:11] LABS: BILIRUBIN,URINE NEGATIVE (NEGATIVE); GLUCOSE, URINE (UA) NEGATIVE (NEGATIVE); KETONES,URINE (UA) NEGATIVE (NEGATIVE); LEUKOCYTE ESTERASE, URINE NEGATIVE (NEGATIVE); NITRITE,URINE POSITIVE (NEGATIVE); OCCULT BLOOD,URINE SMALL (NEGATIVE); PH,URINE 5.5 PH (5.0-7.5); PROTEIN,URINE NEGATIVE (NEGATIVE); UROBILINOGEN,URINE 0.2 (NORMAL) E.U./dL (NORMAL)
--- NOTE | 2020-06-07 13:12 | ED Physician Documentation ---
PD HPI FEMALE - Stated complaint Stated Complaint: L SIDE PX/FEMALE - Chief complaint Chief Complaint: Abd Pain - History obtained from History obtained from: Patient - Additional information Additional information: 35-year-old G now 3P2 with LMP April 21 presents with 2 weeks of on and off left lower quadrant pain and very slight spotting. No history of abdominal surgeries. No urinary complaints. Review of Systems Constitutional: reports: Reviewed and negative Throat: reports: Reviewed and negative Cardiac: reports: Reviewed and negative Respiratory: reports: Reviewed and negative PD PAST MEDICAL HISTORY - Past Surgical History Past Surgical History: No - Present Medications Home Medications: Ambulatory Orders Medication Instructions Recorded Confirmed Calcium Carbonate [Tums (Calcium 11/28/18 Carbonate 500mg)] Famotidine [Pepcid] 20 mg PO BID 10 Days #60 tablet 11/28/18 Ondansetron HCl [Zofran] 4 mg PO Q6HR PRN #30 tablet 11/28/18 Simethicone [Gas Relief] 1 - 2 tab PO DAILY 11/28/18 11/28/18 Nitrofurantoin Monohyd/M-Cryst 100 mg PO BID #10 capsule 06/07/20 [Macrobid 100 mg Capsule] - Allergies Allergies/Adverse Reactions: Allergies Allergy/AdvReac Type Severity Reaction Status Date / Time No Known Drug Allergies Allergy Verified 06/07/20 12:49 - Social History Does the pt smoke?: No Smoking Status: Former smoker Does the pt drink ETOH?: No Does the pt have substance abuse?: No - Immunizations Immunizations are current?: Yes PD ED PE NORMAL - Vitals Vital signs reviewed: Yes - General General: Alert and oriented X 3, No acute distress - Abdomen Abdomen: Normal bowel sounds, Soft, Non tender, Other (Suggestion of gestational sac in the uterus on bedside ultrasound but too early for confirmation.) - Neuro Neuro: Alert and oriented X 3, Normal speech Results - Vitals Vitals: Vital Signs - 24 hr 06/07/20 06/07/20 12:49 15:00 Temperature 36.6 C 37.2 C Heart Rate 103 H 101 H Respiratory 16 18 Rate Blood Pressure 149/86 H 131/84 H O2 Saturation 97 98 Oxygen O2 Source Room air - Labs Labs: Laboratory Tests 06/07/20 06/07/20 06/07/20 13:02 13:13 13:13 WBC 9.3 RBC 4.79 Hgb 13.1 Hct 40.0 MCV 83.5 MCH 27.3 MCHC 32.8 RDW 12.9 Plt Count 358 MPV 9.6 Neut # (Auto) 5.1 Lymph # (Auto) 2.8 [place] # (Auto) 0.9 Eos # (Auto) 0.5 Baso # (Auto) 0.1 Absolute Nucleated RBC 0.00 Nucleated RBC % 0.0 Sodium 136 Potassium 3.3 L Chloride 103 Carbon Dioxide 25 Anion Gap 8.0 BUN 10 Creatinine 0.5 Estimated GFR (MDRD) 140 Glucose 122 H Calcium 9.1 Total Bilirubin 0.3 AST 17 ALT 21 Alkaline Phosphatase 110 Total Protein 7.1 Albumin 3.8 Globulin 3.3 Albumin/Globulin Ratio 1.2 Lipase 26 HCG, Quant Urine Color YELLOW Urine Clarity HAZY Urine pH 5.5 Ur Specific [place] 1.020 Urine Protein NEGATIVE Urine Glucose (UA) NEGATIVE Urine Ketones NEGATIVE Urine Occult Blood SMALL H Urine Nitrite POSITIVE H Urine Bilirubin NEGATIVE Urine Urobilinogen 0.2 (NORMAL) Ur Leukocyte Esterase NEGATIVE Urine RBC 0-5 Urine WBC 4-5 Ur Squamous Epith Cells FEW Squamous Urine Bacteria Moderate H Ur Microscopic Review INDICATED Urine Culture Comments INDICATED Blood Type 06/07/20 06/07/20 13:13 13:13 WBC RBC Hgb Hct MCV MCH MCHC RDW Plt Count MPV Neut # (Auto) Lymph # (Auto) [place] # (Auto) Eos # (Auto) Baso # (Auto) Absolute Nucleated RBC Nucleated RBC % Sodium Potassium Chloride Carbon Dioxide Anion Gap BUN Creatinine Estimated GFR (MDRD) Glucose Calcium Total Bilirubin AST ALT Alkaline Phosphatase Total Protein Albumin Globulin Albumin/Globulin Ratio Lipase HCG, Quant 2777.00 Urine Color Urine Clarity Urine pH Ur Specific [place] Urine Protein Urine Glucose (UA) Urine Ketones Urine Occult Blood Urine Nitrite Urine Bilirubin Urine Urobilinogen Ur Leukocyte Esterase Urine RBC Urine WBC Ur Squamous Epith Cells Urine Bacteria Ur Microscopic Review Urine Culture Comments Blood Type O POSITIVE PD MEDICAL DECISION MAKING - ED course ED course: 35-year-old G3, P2 presents in early with spotting and some abdominal pain. Work-up demonstrates no evidence of ectopic, but does have a UTI. Follow-up ultrasound for confirmation advised. Departure - Departure Disposition: 01 Home, Self Care Clinical Impression: Threatened Urinary tract infection Qualifiers: Urinary tract infection type: site unspecified Hematuria presence: without hematuria Qualified Code(s): N39.0 - Urinary tract infection, site not specified Condition: Good Record reviewed to determine appropriate education?: Yes Instructions: ED Miscarriage Poss, ED UTI Cystitis Female Prescriptions: Nitrofurantoin Monohyd/M-Cryst [Macrobid 100 mg Capsule] 100 mg PO BID #10 capsule Comments: The is very early but the appearance of the ultrasound today looks like it is in the normal place. Probably need a repeat ultrasound in a week for confirmation. Return if worsening. There is also evidence of urinary tract infection, we will culture the urine and call you if an antibiotic change is necessary. Return if you develop flank pain or fevers or worsen. Discharge Date/Time: 06/07/20 14:59
[2020-06-07 13:20] LABS: CLARITY,URINE HAZY (CLEAR)
[2020-06-07 13:23] LABS: BASOPHILS # (AUTO) 0.1 10^3/uL (0.0-0.1); BASOPHILS % (AUTO) 0.6 %; EOSINOPHILS # (AUTO) 0.5 10^3/uL (0.0-0.7); EOSINOPHILS % (AUTO) 4.8 %; HGB - HEMOGLOBIN 13.1 g/dL (12.0-16.0); LYMPHOCYTES # (AUTO) 2.8 10^3/uL (1.5-3.5); LYMPHOCYTES % (AUTO) 29.4 %; MEAN CORPUSCULAR HEMOGLOBIN 27.3 pg (27.0-31.0); MEAN CORPUSCULAR HGB CONC 32.8 g/dL (32.0-36.0); MEAN CORPUSCULAR VOLUME 83.5 fL (81.0-99.0); MEAN PLATELET VOLUME 9.6 fL (7.9-10.8); MONOCYTES # (AUTO) 0.9 10^3/uL (0.0-1.0); MONOCYTES % (AUTO) 10.1 %; NEUTROPHILS # (AUTO) 5.1 10^3/uL (1.5-6.6); NEUTROPHILS % (AUTO) 54.7 %; PLT - PLATELET COUNT 358 10^3/uL (130-450); RED BLOOD COUNT 4.79 10^6/uL (4.20-5.40); RED CELL DISTRIBUTION WIDTH 12.9 % (12.0-15.0); WHITE BLOOD COUNT 9.3 x10^3/uL (4.8-10.8)
[2020-06-07 13:23] LABS: BACTERIA,URINE Moderate /HPF (None Seen); RBC,URINE 0-5 /HPF (0-5); SQUAMOUS EPITHELIAL CELL,UR FEW Squamous (<= Few)
[2020-06-07 13:37] LABS: ALBUMIN 3.8 g/dL (3.2-5.5); ALBUMIN/GLOBULIN RATIO 1.2 (1.0-2.2); BILIRUBIN,TOTAL 0.3 mg/dL (0.2-1.0); CALCIUM 9.1 mg/dL (8.5-10.3); CREATININE 0.5 mg/dL (0.4-1.0); TOTAL PROTEIN 7.1 g/dL (6.7-8.2)
[2020-06-07 15:01] VITALS: BP 131/84
--- NOTE | 2020-06-07 15:07 | Ultrasound Report ---
PROCEDURE: OB First Trimester INDICATIONS: L pelvic pain, 6 weeks preg OUTSIDE/PRIOR DATING DATA: Last menstrual period (LMP): 04/21/2020. LMP-based estimated date of delivery (ABY): 01/26/2021. First dating scan (date and location): The study. Estimated date of delivery (ABY) from first dating scan: 02/02/2021. TECHNIQUE: Real-time scanning was performed of the fetus and maternal pelvic organs, with image documentation. COMPARISON: None for this FINDINGS: Transabdominal scanning: Embryo: 9 mm mean sac diameter, which correlates with a gestational age of 5 weeks 5 days, +/- 7 day s Measurement variability in dating: +/- 4 weeks by LMP, +/- 7 days by mean sac diameter (use before 6 weeks gestation if crown-rump length not able to be measured), +/- 5 days by crown-rump length (6-12 weeks gestation). Maternal organs: Ovaries normal considering transabdominal approach. Limited images through the kid neys demonstrate no hydronephrosis. IMPRESSION: Gestational sac identified, measuring 9 mm with a gestational age estimate of 5 weeks 5 days. Viable intrauterine gestation is not yet seen. Reviewed by: Sacha Freeman MD on 06/07/2020 3:06 PM PDT Approved by: Sacha Freeman MD on 06/07/2020 3:06 PM PDT Station ID: [id number]
--- NOTE | 2020-06-07 15:11 | Ultrasound Report ---
PROCEDURE: OB Transvaginal INDICATIONS: L pelvic pain, 6 weeks preg TECHNIQUE: Transvaginal scanning: COMPARISON: None for this . FINDINGS: Transvaginal scanning shows a gestational sac measuring 9 mm with a estimated associated gestational age of 5 weeks 5 days. An intrauterine gestation is not visualized within this sac, but by early firs t trimester assessment a viable gestation may be present but not yet visible to transvaginal scanning . A yolk sac is identified confirming the gestational sac represents a gestation rather than "pseudog estational sac". Apparent corpus luteum cyst right ovary. This measures only 1.7 cm in maximal dimens ion. IMPRESSION: 5 week 5 day gestation appears present, but a viable intrauterine gestation is not yet documented. Ad ditional follow-up scanning in approximately one week is recommended to confirm viable gestation. A d efinite source of reported intermittent pain and spotting is not found. Reviewed by: Sacha Freeman MD on 06/07/2020 3:10 PM PDT Approved by: Sacha Freeman MD on 06/07/2020 3:10 PM PDT Station ID: [id number]
== END 2020-06-07 14:59 | disposition home or self-care (01) ==
LOC: ED 12:47
DX: O20.0 Threatened abortion (principal); O23.41 Unspecified infection of urinary tract in pregnancy, first trimester; O09.521 Supervision of elderly multigravida, first trimester; Z3A.01 Less than 8 weeks gestation of pregnancy; Z87.891 Personal history of nicotine dependence
CPT/HCPCS: 36415; 76801; 76817; 80053; 81001; 81003; 83690; 84702; 85025; 86900; 86901; 87086; 87181; 99282; 99284